=== PATIENT | male | born 1930 | race Caucasian/White ===

== ENCOUNTER → 2016-09-02 | Outpatient (CLI) | payer OTHER | LOC: CIMAGING 09:03 | PROVIDERS: ATTEND Internal Medicine Pulmonary Disease | DX: R91.8 Other nonspecific abnormal finding of lung field (principal); I70.0 Atherosclerosis of aorta; I25.83 Coronary atherosclerosis due to lipid rich plaque; K44.9 Diaphragmatic hernia without obstruction or gangrene; M43.24 Fusion of spine, thoracic region | CPT/HCPCS: 71250-PO ==

== ENCOUNTER 2018-10-27 19:12 | Inpatient (IN) | payer OTHER ==
--- NOTE | 2018-10-27 19:38 | EDPHY ---
H & P Stated Complaint: SOB and weakness X many days Time Seen by Provider: 10/27/18 19:30 HPI/ROS: CHIEF COMPLAINT: Generalized weakness, shortness of breath HISTORY OF PRESENT ILLNESS: Patient is an 88-year-old man who states that he feels generally weak and that he feels so weak he has trouble getting out of bed. He reports that he feels this way intermittently but that it was worse today. He also reports a nonproductive cough and slight shortness of breath. He wears 3 L of oxygen at baseline for history of COPD. His son also reports that the patient is constipated and often seems constipated but then when he takes MiraLax and has bowel movements he develops this extreme fatigue. Patient has been afebrile. No vomiting. No abdominal pain. No chest pain. No headache or lightheadedness. No focal weakness. Severity: Moderate Modifying factors: None REVIEW OF SYSTEMS: Constitutional: denies: chills, fever, recent illness, recent injury EENTM: denies: blurred vision, double vision, nose congestion Respiratory: See HPI Cardiac: See HPI denies: chest pain, irregular heart rate, lightheadedness, palpitations Gastrointestinal/Abdominal: denies: abdominal pain, diarrhea, nausea, vomiting, blood streaked stools Genitourinary: denies: dysuria, frequency, hematuria, pain Musculoskeletal: denies: joint pain, muscle pain Skin: denies: lesions, rash, jaundice, bruising Neurological: denies: headache, numbness, paresthesia, tingling, dizziness, weakness Hematologic/Lymphatic: denies: blood clots, easy bleeding, easy bruising Immunologic/allergic: denies: HIV/AIDS, transplant 10 systems reviewed and negative except as noted EXAM: GENERAL: No significant distress HEAD: Atraumatic, normocephalic. EYES: Pupils equal round and reactive to light, extraocular movements intact, sclera anicteric, conjunctiva are normal. ENT: TMs normal, nares patent, oropharynx clear without exudates. Moist mucous membranes. NECK: Normal range of motion, supple without lymphadenopathy or JVD. LUNGS: Left lower lobe rhonchi HEART: Regular rate and rhythm without murmurs, rubs or gallops. ABDOMEN: Distended but Soft, nontender, normoactive bowel sounds. No guarding , no rebound. No masses appreciated. BACK: No CVA tenderness, no spinal tenderness, step-offs or deformities EXTREMITIES: Normal range of motion, no pitting or edema. No clubbing or cyanosis. NEUROLOGICAL: Cranial nerves II through XII grossly intact. Normal speech, normal gait. 5/5 strength, normal movement in all extremities, normal sensation , normal reflexes PSYCH: Normal mood, normal affect. SKIN: Warm, dry, normal turgor, no visible rashes or lesions. Source: Patient Exam Limitations: No limitations - Personal History Current Tetanus/Diphtheria Vaccine: Yes Current Tetanus Diphtheria and Acellular Pertussis (TDAP): Yes Tetanus Vaccine Date: within 10 years - Medical/Surgical History Hx Asthma: Yes Hx Chronic Respiratory Disease: No Hx Diabetes: No Hx Cardiac Disease: No Hx Renal Disease: No Hx Cirrhosis: No Hx Alcoholism: No Hx HIV/AIDS: No Hx Splenectomy or Spleen Trauma: No Other PMH: home O2 at night, high cholesterol, HTN, B TKAs, kidney stones - Family History Significant Family History: No pertinent family hx - Social History Smoking Status: Never smoked Alcohol Use: Sober Drug Use: None Constitutional: Initial Vital Signs Temperature (C) 36.7 C 10/27/18 19:15 Heart Rate 94 10/27/18 19:15 Respiratory Rate 18 10/27/18 19:15 Blood Pressure 150/86 H 10/27/18 19:15 O2 Sat (%) 95 10/27/18 19:15 O2 Delivery Mode Nasal Cannula O2 (L/minute) 4 Allergies/Adverse Reactions: sulfur dioxide Allergy (Verified 10/27/18 19:15) Home Medications: Medication Instructions Recorded Acetamn/Diphenhydramine 500/25 1 each PO HS 10/27/18 [Tylenol PM (*)] Albuterol Sulfate [Proair Hfa] 1 - 2 puffs IH Q4-6PRN PRN 10/27/18 Ascorbic Acid [Vitamin C 500 mg 500 mg PO DAILY 10/27/18 (*)] Atorvastatin Calcium [Lipitor 20 20 mg PO DAILY 10/27/18 mg (*)] Benzonatate 200 mg PO BID 10/27/18 Cholecalciferol Vit D3 [Vitamin D3 2,000 units PO HS 10/27/18 (*)] Diltiazem HCl [Diltiazem ER] 360 mg PO DAILY 10/27/18 Docusate Sodium [Colace 100 MG (*)] 200 mg PO BID 10/27/18 Doxazosin Mesylate [Cardura 1 MG 2 mg PO DAILY 10/27/18 (*)] Fluticasone Hfa 220 Mcg [Flovent 1 puffs IH BID 10/27/18 220 MCG Hfa MDI (*)] Herbals/Supplements -Info Only 1 ea PO DAILY 10/27/18 Ibuprofen [Motrin (*)] 200 mg PO DAILY 10/27/18 Ipratropium/Albuterol [Duoneb (*)] 3 ml IH Q4H PRN 10/27/18 Lansoprazole 30 mg PO DAILY 10/27/18 Losartan Potassium [Cozaar 25 mg 25 mg PO DAILY 10/27/18 (*)] Magnesium Citrate [Magnesium 300 ml PO ONCE PRN 10/27/18 Citrate 300 ml (*)] Mometasone Furoate Nasal [Nasonex] 1 sprays NASAL DAILY 10/27/18 Multivitamins [Multivitamin (*)] 1 each PO DAILY 10/27/18 Psyllium Husk/Aspartame [Metamucil 3.4 gm PO HS 10/27/18 Fiber Singles Packet] Sennosides [Senna Lax] 8.6 mg PO EVERY OTHER DAY 10/27/18 predniSONE 5 mg PO DAILY 10/27/18 traMADol [Ultram 50 mg (*)] 50 mg PO BID 10/27/18 Medical Decision Making - Diagnostics EKG Interpretation: An EKG obtained and was read and documented in trace view. Please see trace view for full reading and report. Sinus rhythm, right bundle branch block unchanged from previous, no acute ischemic changes Imaging: Discussed imaging studies w/ call center rn Radiologist ED Course/Re-evaluation: Patient's D-dimer is elevated as is white count. Will order CT angio. Will give IV fluids because slightly elevated creatinine. Abdominal exam remains nontender. 9:40 p.m. the patient has bibasilar pneumonia on CT. Will start on Rocephin and azithromycin. I have paged the hospitalist service. Negative for PE. Patient and son agree to admission. Discussed the case with Dr. Trejo who will admit. Differential Diagnosis: Partial list of the Differential diagnosis considered include but were not limited to; pneumonia, sepsis, constipation and although unlikely based on the history and physical exam, I also considered PE, acute coronary disease, pancreatitis, biliary disease. - Data Points Laboratory Results: Laboratory Results 10/27/18 19:30 10/27/18 19:30 Medications Given: Albuterol/Ipratropium (Duoneb) 3 ml IH Q6HRS STEVE Stop: 04/26/19 05:59 Last Admin: 10/28/18 12:19 Dose: 3 ml Atorvastatin Calcium (Lipitor) 20 mg PO DAILY STEVE Stop: 04/26/19 08:59 Last Admin: 10/28/18 09:25 Dose: 20 mg Azithromycin (Zithromax) 250 mg PO DAILY [facility] PRN Reason: Protocol Stop: 11/27/18 08:59 Last Admin: 10/28/18 09:25 Dose: 250 mg Benzonatate (Tessalon Pearles) 200 mg PO BID STEVE Stop: 04/26/19 08:59 Last Admin: 10/28/18 09:25 Dose: 200 mg Diltiazem HCl (Dilacor Xr) 240 mg PO DAILY STEVE Stop: 04/26/19 08:59 Last Admin: 10/28/18 09:25 Dose: 240 mg Diltiazem HCl (Cardizem Er Q24hr) 120 mg PO DAILY STEVE Stop: 04/26/19 08:59 Last Admin: 10/28/18 09:25 Dose: 120 mg Doxazosin Mesylate (Cardura) 2 mg PO DAILY STEVE Stop: 04/26/19 08:59 Last Admin: 10/28/18 09:24 Dose: 2 mg Fluticasone Propionate (Flovent Hfa) 1 puffs IH BID STEVE Stop: 04/26/19 08:59 Last Admin: 10/28/18 12:19 Dose: 1 puffs Heparin Sodium (Porcine) (Heparin Sc Injection) 5,000 unit SC Q8 STEVE Stop: 04/26/19 05:59 Last Admin: 10/28/18 14:23 Dose: 5,000 unit Ceftriaxone Sodium/Dextrose (Rocephin 1 Gm (Premix)) 50 mls @ 100 mls/hr IV DAILY STEVE PRN Reason: Protocol Stop: 11/27/18 08:59 Last Admin: 10/28/18 09:28 Dose: 50 mls Mometasone Furoate (Asmanex) 1 puffs IH DAILY STEVE Stop: 04/26/19 08:59 Last Admin: 10/28/18 14:40 Dose: 1 inh Pantoprazole Sodium (Protonix) 40 mg PO DAILY STEVE Stop: 04/26/19 08:59 Last Admin: 10/28/18 09:25 Dose: 40 mg Prednisone (Prednisone) 40 mg PO DAILY STEVE Stop: 04/26/19 08:59 Last Admin: 10/28/18 09:25 Dose: 40 mg Discontinued Medications Sodium Chloride (Ns) 1,000 mls @ 0 mls/hr IV EDNOW ONE; Wide Open PRN Reason: Protocol Stop: 10/27/18 20:41 Last Admin: 10/27/18 22:00 Dose: 1,000 mls Azithromycin 500 mg/ Sodium (Chloride) 255 mls @ 255 mls/hr IV EDNOW ONE PRN Reason: Protocol Stop: 10/27/18 22:34 Last Admin: 10/28/18 00:03 Dose: 255 mls Ceftriaxone Sodium/Dextrose (Rocephin 1 Gm (Premix)) 50 mls @ 100 mls/hr IV EDNOW ONE PRN Reason: Protocol Stop: 10/27/18 22:02 Last Admin: 10/27/18 22:00 Dose: 50 mls Point of Care Test Results: Chemistry 10/27/18 19:40 POC Troponin I 0.00 ng/mL ng/mL (0.00-0.08) Departure - Departure Disposition: [facility] Acute Clinical Impression: Generalized weakness Pneumonia of both lower lobes Qualifiers: Pneumonia type: due to unspecified organism Qualified Code(s): J18.1 - Lobar pneumonia, unspecified organism Condition: Fair
--- NOTE | 2018-10-27 19:43 | CPEKG ---
Test Reason : OPEN Blood Pressure : / mmHG Vent. Rate : 091 BPM Atrial Rate : 091 BPM P-R Int : 181 ms QRS Dur : 144 ms QT Int : 367 ms P-R-T Axes : 020 -16 -16 degrees QTc Int : 452 ms Sinus rhythm Right bundle branch block Confirmed by Kwame Palm ([id number]) on 10/27/2018 7:42:22 PM Referred By: Igor Reed Confirmed By:Kwame Palm
[2018-10-27 19:44] LABS: PLATELET COUNT 211 10^3/uL (150-400)
[2018-10-27 19:53] LABS: INR 1.22 (0.83-1.16); PROTIME(PATIENT) 14.9 SEC (12.0-15.0)
[2018-10-27] MEDS ORDERED: IOPAMIDOL (ISOVUE 370) 100 ML BTL IV ONE (20:32)
[2018-10-27] MEDS ORDERED: NS 1,000 ML IV ONE (20:40)
[2018-10-27] MEDS ORDERED: ONDANSETRON DISINTEGRATING 4 MG TAB PO PRN (22:43)
[2018-10-27] MEDS ORDERED: ALBUTEROL 3 ML DEYVIAL IH PRN (22:43)
[2018-10-27] MEDS ORDERED: ACETAMINOPHEN 325 MG TAB PO PRN (22:43)
[2018-10-27] MEDS ORDERED: ONDANSETRON 4 MG/2 ML VIAL IVP PRN (22:43)
[2018-10-27] MEDS: AZITHROMYCIN IV 500 MG in NS 250 ML IV ONE (23:41)
[2018-10-28] MEDS: AZITHROMYCIN IV 500 MG in NS 250 ML IV ONE (00:03)
--- NOTE | 2018-10-28 03:48 | PDGENHP ---
History and Physical - Chief Complaint Shortness of breath - History of Present Illness 88 yo M w/ hx of asthma, CHRF, and HTN presents with shortness of breath. The patient tells me that today he developed fatigue and found it difficult to get out of bed. Over the course of the day he developed shortness of breath and worsening cough productive of yellow sputum. Of note, he also tells me he has been experiencing night sweats, but that this has been going on for months. Evaluation in the ED notable for marked leukocytosis and CT evidence of RLL pneumonia. He is not displaying sepsis physiology at this time. He is stable on his baseline 3 L/min O2. He is being admitted for treatment of presumed community acquired pneumonia. Case discussed with Dr. Elder; records reviewed and summarized above. History Information - Allergies/Home Medication List Allergies/Adverse Reactions: sulfur dioxide Allergy (Verified 10/27/18 19:15) Home Medications: Acetamn/Diphenhydramine 500/25 [Tylenol PM (*)] 1 each PO HS 10/27/18 [Last Taken 10/26/18] Albuterol Sulfate [Proair Hfa] 1 - 2 puffs IH Q4-6PRN PRN 10/27/18 [Last Taken Unknown] Ascorbic Acid [Vitamin C 500 mg (*)] 500 mg PO DAILY 10/27/18 [Last Taken ] Atorvastatin Calcium [Lipitor 20 mg (*)] 20 mg PO DAILY 10/27/18 [Last Taken 02/07] Benzonatate 200 mg PO BID 10/27/18 [Last Taken 10/27/18] Cholecalciferol Vit D3 [Vitamin D3 (*)] 2,000 units PO HS 10/27/18 [Last Taken 10/26/18] Diltiazem HCl [Diltiazem ER] 360 mg PO DAILY 10/27/18 [Last Taken 10/26/18] Docusate Sodium [Colace 100 MG (*)] 200 mg PO BID 10/27/18 [Last Taken 10/27/18] Doxazosin Mesylate [Cardura 1 MG (*)] 2 mg PO DAILY 10/27/18 [Last Taken ] Fluticasone Hfa 220 Mcg [Flovent 220 MCG Hfa MDI (*)] 1 puffs IH BID 10/27/18 [ Last Taken 10/27/18] Herbals/Supplements -Info Only 1 ea PO DAILY 10/27/18 [Last Taken 10/25/18] Ibuprofen [Motrin (*)] 200 mg PO DAILY 10/27/18 [Last Taken Unknown] Ipratropium/Albuterol [Duoneb (*)] 3 ml IH Q4H PRN 10/27/18 [Last Taken Unknown] Lansoprazole 30 mg PO DAILY 10/27/18 [Last Taken 10/26/18] Losartan Potassium [Cozaar 25 mg (*)] 25 mg PO DAILY 10/27/18 [Last Taken ] Magnesium Citrate [Magnesium Citrate 300 ml (*)] 300 ml PO ONCE PRN 10/27/18 [ Last Taken Unknown] Mometasone Furoate Nasal [Nasonex] 1 sprays NASAL DAILY 10/27/18 [Last Taken 12/08] Multivitamins [Multivitamin (*)] 1 each PO DAILY 10/27/18 [Last Taken 10/26/18] Psyllium Husk/Aspartame [Metamucil Fiber Singles Packet] 3.4 gm PO HS 10/27/18 [ Last Taken 10/26/18] Sennosides [Senna Lax] 8.6 mg PO EVERY OTHER DAY 10/27/18 [Last Taken Unknown] predniSONE 5 mg PO DAILY 10/27/18 [Last Taken 10/26/18] traMADol [Ultram 50 mg (*)] 50 mg PO BID 10/27/18 [Last Taken 10/26/18] I have personally reviewed and updated: family history, medical history - Past Medical History asthma, hypertension Additional medical history: CHRF - 3 L/min O2 continuously - Surgical History Additional surgical history: Tonsillectomy - Family History Positive for: cancer (Colon CA in father) - Social History Smoking Status: Never smoked Alcohol Use: Sober Drug Use: None Review of Systems Review of Systems: ROS: 10pt was reviewed & negative except for what was stated in HPI & below Physical Exam Physical Exam: Temp Pulse Resp BP Pulse Ox 36.6 C 73 18 153/69 H 95 10/27/18 23:32 10/27/18 23:32 10/27/18 23:32 10/27/18 23:32 10/27/18 23:32 O2 (L/minute) 3 Constitutional: appears nourished, uncomfortable Eyes: PERRL, EOMI Ears, Nose, Mouth, Throat: moist mucous membranes, no oral mucosal ulcers Cardiovascular: regular rate and rhythym, systolic murmur, edema (1+ b/l ADILIA) Respiratory: no respiratory distress, expiratory wheeze, inspiratory crackles Gastrointestinal: normoactive bowel sounds, soft, non-tender abdomen Skin: warm, normal color Musculoskeletal: full muscle strength, no muscle tenderness Neurologic: AAOx3, CN II-XII Intact Psychiatric: interacting appropriately, not anxious Lab Data & Imaging Review 10/27/18 19:30 10/27/18 19:30 WBC 28.89 10^3/uL (3.80-9.50) H 10/27/18 19: RBC 4.22 10^6/uL (4.40-6.38) L 10/27/18 19:30 Hgb 12.0 g/dL (13.7-17.5) L 10/27/18 19: Hct 36.8 % (40.0-51.0) L 10/27/18 19:30 MCV 87.2 fL (81.5-99.8) 10/27/18 19: MCH 28.4 pg (27.9-34.1) 10/27/18 19: MCHC 32.6 g/dL (32.4-36.7) 10/27/18 19: RDW 15.3 % (11.5-15.2) H 10/27/18 19: Plt Count 211 10^3/uL (150-400) 10/27/18 19: MPV 9.9 fL (8.7-11.7) 10/27/18 19:30 Neut % (Auto) 78.1 % (39.3-74.2) H 10/27/18 19:30 Lymph % (Auto) 15.0 % (15.0-45.0) 10/27/18 19:30 [place] % (Auto) 5.5 % (4.5-13.0) 10/27/18 19:30 Eos % (Auto) 0.4 % (0.6-7.6) L 10/27/18 19: Baso % (Auto) 0.2 % (0.3-1.7) L 10/27/18 19:30 Nucleat RBC Rel Count 0.0 % (0.0-0.2) 10/27/18 19:30 Absolute Neuts (auto) 22.56 10^3/uL (1.70-6.50) H 10/27/18 19:30 Absolute Lymphs (auto) 4.33 10^3/uL (1.00-3.00) H 10/27/18 19:30 Absolute Monos (auto) 1.59 10^3/uL (0.30-0.80) H 10/27/18 19:30 Absolute Eos (auto) 0.12 10^3/uL (0.03-0.40) 10/27/18: Absolute Basos (auto) 0.06 10^3/uL (0.02-0.10) 10/27/18 19:30 Absolute Nucleated RBC 0.00 10^3/uL (0-0.01) 10/27/18 19: Immature Gran % 0.8 % (0.0-1.1) 10/27/18 19: Immature Gran # 0.23 10^3/uL (0.00-0.10) H 10/27/18 19:30 RBC/WBC/PLT Morphology TNP 10/27/18: Platelet Estimate TNP 10/27/18: PT 14.9 SEC (12.0-15.0) 10/27/18 19:30 INR 1.22 (0.83-1.16) H 10/27/18: APTT 31.7 SEC (23.0-38.0) 10/27/18 19: D-Dimer 1.94 ug/mLFEU (0.00-0.50) H 10/27/18 19:30 VBG Lactic Acid 0.8 mmol/L (0.7-2.1) 10/27/18 20:08 Sodium 140 mEq/L (135-145) 10/27/18 19:30 Potassium 4.7 mEq/L (3.5-5.2) 10/27/18 19: Chloride 106 mEq/L (97-110) 10/27/18 19: Carbon Dioxide 22 mEq/l (22-31) 10/27/18 19:30 Anion Gap 12 mEq/L (6-14) 10/27/18 19:30 BUN 34 mg/dL (7-23) H 10/27/18 19:30 Creatinine 1.5 mg/dL (0.7-1.3) H 10/27/18 19:30 Estimated GFR 44 10/27/18 19:30 Glucose 119 mg/dL (70-100) H 10/27/18 19:30 Calcium 9.3 mg/dL (8.5-10.4) 10/27/18 19:30 POC Troponin I 0.00 ng/mL (0.00-0.08) 10/27/18 19:40 NT-Pro-B Natriuret Pep 849 pg/mL (0-450) H 10/27/18 19:30 Procalcitonin 0.34 ng/mL (0.02-0.10) H 10/27/18 19:30 Imaging Review: Imaging Impressions Chest X-Ray 10/27/18 19:31 Impression: Bibasilar atelectasis and airways disease/bronchitis. Chest/Thorax CTA 10/27/18 20:29 Impression: 1. No evidence of pulmonary thromboembolic disease. 2. Bronchial pneumonia preferentially involving the right lower lobe. 3. No pleural effusion. 4. Extensive three-vessel calcified coronary plaque. 5. Left nephrolithiasis. Findings discussed with Emergency Department physician, Kwame Palm M.D., on October 27, 2018 at 2132. E:amm Visualized and Interpreted EKG results: Yes EKG Interpretation: Positive for: normal sinsus rhythm, right bundle branch block Assessment & Plan Assessment: 88 yo M w/ hx of asthma, HTN, and CHRF presents with pneumonia. Plan: 1. Community acquired pneumonia - He presents with one day of SOB and increased cough productive of yellow sputum. WBC 28k w/ CT evidence of RLL pneumonia, no sepsis physiology at this time. Procalcitonin mildly elevated at 0.34. - Admit for observation - CTX/Azithromycin for CAP coverage - Blood cultures, sputum culture, respiratory PCR ordered - Will also send Strep, Legionella urine antigens 2. Asthma with acute exacerbation - Exacerbation due to pneumonia; he follows with Dr. Tran as an outpatient. - Antibiotics as above - Prednisone 40 mg qD - Duonebs QID + albuterol PRN (He is on duonebs as outpatient per Dr. Tran despite hx of asthma) 3. CHRF - On 3 L/min O2 as an outpatient, currently stable on the same. - Continue O2 PRN - Incentive spirometry ordered 4. ESE - Serum creatinine 1.5 on admission, possibly due to dehydration and infection. - S/p 1 L IVF - Monitor BMP 5. HTN - Continue home medications pending reconciliation Diet - Regular Code - Full Ppx - SQH Dispo - Admit under observation status
[2018-10-28 05:12] LABS: PLATELET COUNT 193 10^3/uL (150-400)
[2018-10-28] MEDS: IPRATROPIUM/ALBUTEROL 3 ML DEYVIAL IH SCH ×4 (05:12→21:56)
[2018-10-28] MEDS: HEPARIN 5,000 UNIT/0.5 ML INJ SC SCH ×3 (05:50→21:10)
[2018-10-28] MEDS: DOXAZOSIN MESYLATE 1 MG TAB PO SCH (09:24)
[2018-10-28] MEDS: DILTIAZEM XR 240 MG CAP PO SCH (09:25)
[2018-10-28] MEDS: PANTOPRAZOLE SODIUM 40 MG TAB PO SCH (09:25)
[2018-10-28] MEDS: DILTIAZEM CD 120 MG CAP PO SCH (09:25)
[2018-10-28] MEDS: ATORVASTATIN CALCIUM 20 MG TAB PO SCH (09:25)
[2018-10-28] MEDS: BENZONATATE 100 MG CAP PO SCH ×2 (09:25→20:30)
[2018-10-28] MEDS: predniSONE 20 MG TAB PO SCH (09:25)
[2018-10-28] MEDS: AZITHROMYCIN 250 MG TAB PO SCH (09:25)
--- NOTE | 2018-10-28 11:29 | ASMTCMCOM ---
CM Note CM Note Notes: Pts case discussed w/ Dr. Ramon. Pt is a 88 y/o man admitted for pneumonia, generalized weakness and SOB. CM met w/ pt and introduced self. Pt and his son Tony was present. Pt lives w/ Tony. Pt reports that Tony brings pt to all his appointments, and does the cooking/cleaning around the house. Pt reports that he uses a walker and 3L of o2 at baseline. PT/OT have been ordered and awaiting recommendations. Needs are TBD at this time. CM to follow. Plan: TBD Date Signed: 10/28/2018 11:27 AM Electronically Signed By:CORRY Ibarra
[2018-10-28] MEDS: FLUTICASONE HFA 220 MCG MDI IH SCH ×2 (12:19→21:56)
--- NOTE | 2018-10-28 13:42 | HOSPPROG ---
Hospitalist Progress Note Assessment/Plan: 88 yo M w/ hx of asthma, HTN, and CHRF presents with pneumonia. Plan: 1. Community acquired pneumonia - He presents with one day of SOB and increased cough productive of yellow sputum. WBC 28k w/ CT evidence of RLL pneumonia, no sepsis physiology at this time. Procalcitonin mildly elevated at 0.34. - CTX/Azithromycin for CAP coverage (Day 1/ likely 7 day course) - Blood cultures, sputum culture, respiratory PCR negative - Strep, Legionella urine antigens pending 2. Asthma with acute exacerbation - Exacerbation due to pneumonia; he follows with Dr. Tran as an outpatient. - Antibiotics as above - Prednisone 40 mg qD (Day 15) - Duonebs QID + albuterol PRN (He is on duonebs as outpatient per Dr. Tran despite hx of asthma) 3. CHRF - On 3 L/min O2 as an outpatient, currently stable on the same. - Continue O2 PRN - Incentive spirometry ordered 4. ESE - Serum creatinine 1.5 on admission, possibly due to dehydration and infection. - S/p 1 L IVF - Monitor BMP 5. HTN - Continue home medications pending reconciliation Diet - Regular Code - Full Ppx - SQH Dispo - Pending clinical course Subjective: Pt reports feeling very weak this afternoon Objective: Vital Signs Temp Pulse Resp BP Pulse Ox 36.7 C 76 18 143/73 H 92 10/28/18 11:36 10/28/18 11:36 10/28/18 11:36 10/28/18 11:36 10/28/18 11:36 Microbiology 10/28/18 08:30 - Final Sputum, Expectorated 10/27/18 23:40 Respiratory Panel (PCR) - Final Nasal, Sinus - Swab No Organism Detected By Pcr Laboratory Results 10/28/18 04:30 10/28/18 04:30 10/27/18 10/28/18 10/29/18 05:59 05:59 05:59 Intake Total 1050 Output Total 525 Balance 525 PT 14.9 SEC (12.0-15.0) 10/27/18 19:30 INR 1.22 (0.83-1.16) H 10/27/18 19:30 - Physical Exam Constitutional: chronically ill appearing Eyes: PERRL Ears, Nose, Mouth, Throat: moist mucous membranes Cardiovascular: regular rate and rhythym Respiratory: reduced air movement, rhonchi Gastrointestinal: soft, non-tender abdomen, distension Skin: warm Musculoskeletal: generalized weakness Neurologic: AAOx3 Psychiatric: interacting appropriately ICD10 Worksheet Patient Problems: Problems Problem Status Onset Generalized weakness Acute Pneumonia of both lower lobes Acute
[2018-10-28] MEDS: MOMETASONE 220MCG INHALER IH SCH (14:40)
[2018-10-28] MEDS: traMADol 50 MG TAB PO PRN (21:15)
[2018-10-28] MEDS ORDERED: GUAIFENESIN/DM 10 ML UDCUP PO PRN (22:12)
[2018-10-29] MEDS: HEPARIN 5,000 UNIT/0.5 ML INJ SC SCH ×3 (05:26→21:38)
[2018-10-29] MEDS: IPRATROPIUM/ALBUTEROL 3 ML DEYVIAL IH SCH ×4 (05:52→22:16)
[2018-10-29] MEDS: DILTIAZEM XR 240 MG CAP PO SCH (08:44)
[2018-10-29] MEDS: ATORVASTATIN CALCIUM 20 MG TAB PO SCH (08:44)
[2018-10-29] MEDS: AZITHROMYCIN 250 MG TAB PO SCH (08:44)
[2018-10-29] MEDS: predniSONE 20 MG TAB PO SCH (08:44)
[2018-10-29] MEDS: BENZONATATE 100 MG CAP PO SCH ×2 (08:45→21:38)
[2018-10-29] MEDS: PANTOPRAZOLE SODIUM 40 MG TAB PO SCH (08:45)
[2018-10-29] MEDS: DILTIAZEM CD 120 MG CAP PO SCH (08:45)
[2018-10-29] MEDS: DOXAZOSIN MESYLATE 1 MG TAB PO SCH (08:45)
--- NOTE | 2018-10-29 09:00 | PDMN ---
Medical Necessity Medical necessity: Change to inpt as of 10/28/18, meets inpt criteria per MD order and MCG M-282, Pneumonia, A-2 days, 88 y/o admitted w/bibasilar PNA w/ asthma exacerbation and ESE, warrants inpt admission due to pt's comorbid adv age, and hx of CHRF (uses 3L O2 at home), asthma (w/current exacerbation), ongoing weakness due to PNA, cont IV ABX's, est LOS>2MN for onging med nec tx of above.
[2018-10-29] MEDS: MOMETASONE 220MCG INHALER IH SCH (09:56)
[2018-10-29] MEDS: FLUTICASONE HFA 220 MCG MDI IH SCH ×2 (09:56→22:17)
--- NOTE | 2018-10-29 10:39 | ASMTCMCOM ---
CM Note CM Note Notes: Pts case discussed w/ Dr. Ramon. Therapies are recommending SNF at this time. CM met w/ pt for dispo planning. Pt is agreeable to going to SNF. Pt reports that he is pretty sure that he went to [facility] after he had knee surgery. Pt would like a referral made there. Pt wanted CM to call son and update him of this. CM left a msg for pts son Tony (P#: [phone]). CM to follow. Plan: [facility] pending on acceptance Date Signed: 10/29/2018 10:38 AM Electronically Signed By:CORRY Ibarra
--- NOTE | 2018-10-29 14:51 | HOSPPROG ---
Hospitalist Progress Note Assessment/Plan: 88 yo M w/ hx of asthma, HTN, and CHRF presents with pneumonia. Plan: 1. Community acquired pneumonia - He presents with one day of SOB and increased cough productive of yellow sputum. WBC 28k w/ CT evidence of RLL pneumonia, no sepsis physiology at this time. Procalcitonin mildly elevated at 0.34. - CTX/Azithromycin for CAP coverage (Day 2/ likely 7 day course) - Blood cultures, sputum culture pending - Respiratory PCR negative - Strep, Legionella urine antigens pending 2. Asthma with acute exacerbation - Exacerbation due to pneumonia; he follows with Dr. Tran as an outpatient. - Antibiotics as above - Prednisone 40 mg qD (Day 2/5) - Duonebs QID + albuterol PRN (He is on duonebs as outpatient per Dr. Tran despite hx of asthma) 3. CHRF - On 3 L/min O2 as an outpatient, currently stable on the same. - Continue O2 PRN - Incentive spirometry ordered 4. ESE - Serum creatinine 1.5 on admission, possibly due to dehydration and infection. - S/p 1 L IVF - Monitor BMP, Cr 1.3 this AM 5. HTN - Continue home medications Diet - Regular Code - Full Ppx - SQH Dispo - Pending clinical course, OT recommending SNF Subjective: Pt reports improving SOB, but has fatigue still Objective: Vital Signs Temp Pulse Resp BP Pulse Ox 36.7 C 73 14 117/47 L 94 10/29/18 11:13 10/29/18 11:13 10/29/18 11:13 10/29/18 11:13 10/29/18 11:13 Laboratory Results 10/29/18 04:46 10/29/18 04:46 10/28/18 10/29/18 10/30/18 05:59 05:59 05:59 Intake Total 500 Balance 500 PT 14.9 SEC (12.0-15.0) 10/27/18 19:30 INR 1.22 (0.83-1.16) H 10/27/18 19:30 - Physical Exam Constitutional: chronically ill appearing Eyes: PERRL Ears, Nose, Mouth, Throat: moist mucous membranes Cardiovascular: regular rate and rhythym Respiratory: reduced air movement, rhonchi Gastrointestinal: soft, non-tender abdomen Skin: warm Musculoskeletal: generalized weakness Neurologic: AAOx3 Psychiatric: interacting appropriately ICD10 Worksheet Patient Problems: Problems Problem Status Onset Generalized weakness Acute Pneumonia of both lower lobes Acute
[2018-10-29] MEDS: LIDOCAINE 4%/MENTHOL 1% PATCH TD SCH (15:22)
[2018-10-29] MEDS: PATCH REMOVAL 1 EA PATCH TD SCH (21:39)
[2018-10-30] MEDS: IPRATROPIUM/ALBUTEROL 3 ML DEYVIAL IH SCH ×4 (05:08→21:46)
[2018-10-30] MEDS: HEPARIN 5,000 UNIT/0.5 ML INJ SC SCH ×3 (05:21→21:24)
[2018-10-30] MEDS: LIDOCAINE 4%/MENTHOL 1% PATCH TD SCH (08:17)
[2018-10-30] MEDS: DILTIAZEM XR 240 MG CAP PO SCH (08:17)
[2018-10-30] MEDS: predniSONE 20 MG TAB PO SCH (08:18)
[2018-10-30] MEDS: AZITHROMYCIN 250 MG TAB PO SCH (08:18)
[2018-10-30] MEDS: DOXAZOSIN MESYLATE 1 MG TAB PO SCH (08:18)
[2018-10-30] MEDS: DILTIAZEM CD 120 MG CAP PO SCH (08:18)
[2018-10-30] MEDS: ATORVASTATIN CALCIUM 20 MG TAB PO SCH (08:18)
[2018-10-30] MEDS: PANTOPRAZOLE SODIUM 40 MG TAB PO SCH (08:18)
[2018-10-30] MEDS: BENZONATATE 100 MG CAP PO SCH ×2 (08:18→21:21)
[2018-10-30] MEDS: FLUTICASONE HFA 220 MCG MDI IH SCH ×2 (09:45→21:47)
[2018-10-30] MEDS: MOMETASONE 220MCG INHALER IH SCH (09:48)
--- NOTE | 2018-10-30 13:28 | HOSPPROG ---
Hospitalist Progress Note Assessment/Plan: 88 yo M w/ hx of asthma, HTN, and CHRF presents with pneumonia. Plan: 1. Community acquired pneumonia - He presents with one day of SOB and increased cough productive of yellow sputum. WBC 28k w/ CT evidence of RLL pneumonia, no sepsis physiology at this time. Procalcitonin mildly elevated at 0.34. - Will transition CTX/Azithromycin to Levaquin to complete total 7 day course ( day 3) - Blood cultures NGTD, sputum culture growing Pseudomonas susceptible to Levaquin - Respiratory PCR negative - Strep, Legionella urine antigens pending 2. Asthma with acute exacerbation - Exacerbation due to pneumonia; he follows with Dr. Tran as an outpatient. - Antibiotics as above - Prednisone 40 mg qD (Day 3) - Duonebs QID + albuterol PRN (He is on duonebs as outpatient per Dr. Tran despite hx of asthma) 3. CHRF - On 3 L/min O2 as an outpatient, currently stable on the same. - Continue O2 PRN - Incentive spirometry ordered 4. ESE - Serum creatinine 1.5 on admission, possibly due to dehydration and infection. - S/p 1 L IVF - Monitor BMP, Cr 1.2 this AM 5. HTN - Continue home medications Diet - Regular Code - Full Ppx - SQH Dispo - Pending clinical course, OT recommending SNF, CM working on placement Subjective: Pt reports continuing to feel improved this AM Objective: Vital Signs Temp Pulse Resp BP Pulse Ox 36.8 C 66 16 136/63 H 95 10/30/18 11:11 10/30/18 11:47 10/30/18 11:47 10/30/18 11:11 10/30/18 11:47 Laboratory Results 10/30/18 04:36 10/30/18 04:36 10/29/18 10/30/18 10/31/18 05:59 05:59 05:59 Intake Total 500 300 Balance 500 300 PT 14.9 SEC (12.0-15.0) 10/27/18 19:30 INR 1.22 (0.83-1.16) H 10/27/18 19:30 - Physical Exam Constitutional: chronically ill appearing Eyes: PERRL Ears, Nose, Mouth, Throat: moist mucous membranes Cardiovascular: regular rate and rhythym Respiratory: no respiratory distress, reduced air movement Gastrointestinal: soft, non-tender abdomen Skin: normal color Musculoskeletal: generalized weakness Neurologic: AAOx3 Psychiatric: interacting appropriately ICD10 Worksheet Patient Problems: Problems Problem Status Onset Generalized weakness Acute Pneumonia of both lower lobes Acute
[2018-10-30] MEDS: CEPACOL LOZENGE PO PRN ×3 (14:21→21:44)
--- NOTE | 2018-10-30 14:26 | ASMTCMCOM ---
CM Note CM Note Notes: [facility] has accepted pt and is awaiting authorization from insurance. CM sent note asking to notify us when authorization received. Dr. Ramon is transitioning pt from IV to oral antibiotics to complete his 7-day course (on day 3 today) in preparation for when he discharges. CM will continue to follow. CM D/C plan: [facility] once authorization received Date Signed: 10/30/2018 02:26 PM Electronically Signed By:Kerline Escobedo
[2018-10-30] MEDS: guaiFENesin/CODEINE PHOS 10 ML UDCUP PO PRN (18:36)
[2018-10-30] MEDS: PATCH REMOVAL 1 EA PATCH TD SCH (21:28)
[2018-10-30] MEDS: traMADol 50 MG TAB PO PRN (21:42)
[2018-10-31] MEDS: HEPARIN 5,000 UNIT/0.5 ML INJ SC SCH ×3 (05:26→21:54)
[2018-10-31] MEDS: IPRATROPIUM/ALBUTEROL 3 ML DEYVIAL IH SCH ×4 (05:44→21:15)
[2018-10-31] MEDS: ATORVASTATIN CALCIUM 20 MG TAB PO SCH (08:55)
[2018-10-31] MEDS: PANTOPRAZOLE SODIUM 40 MG TAB PO SCH (08:56)
[2018-10-31] MEDS: predniSONE 20 MG TAB PO SCH (08:57)
[2018-10-31] MEDS: DOXAZOSIN MESYLATE 1 MG TAB PO SCH (08:57)
[2018-10-31] MEDS: BENZONATATE 100 MG CAP PO SCH ×2 (08:57→20:47)
[2018-10-31] MEDS: DILTIAZEM CD 120 MG CAP PO SCH (08:58)
[2018-10-31] MEDS: DILTIAZEM XR 240 MG CAP PO SCH (08:59)
[2018-10-31] MEDS: FLUTICASONE HFA 220 MCG MDI IH SCH ×2 (09:00→20:47)
[2018-10-31] MEDS: MOMETASONE 220MCG INHALER IH SCH (09:01)
[2018-10-31] MEDS: LIDOCAINE 4%/MENTHOL 1% PATCH TD SCH (09:01)
--- NOTE | 2018-10-31 10:36 | HOSPPROG ---
Hospitalist Progress Note Assessment/Plan: 88 yo M w/ hx of asthma, HTN, and CHRF presents with pneumonia. Plan: 1. Community acquired pneumonia - He presents with one day of SOB and increased cough productive of yellow sputum. WBC 28k w/ CT evidence of RLL pneumonia, no sepsis physiology at this time. Procalcitonin mildly elevated at 0.34. - Will transition CTX/Azithromycin to Levaquin to complete total 7 day course ( day 4) - Blood cultures NGTD, sputum culture growing Pseudomonas susceptible to Levaquin - Respiratory PCR negative - Strep, Legionella urine antigens negative 2. Asthma with acute exacerbation - Exacerbation due to pneumonia; he follows with Dr. Tran as an outpatient. - Antibiotics as above - Prednisone 40 mg qD (Day 4) - Duonebs QID + albuterol PRN (He is on duonebs as outpatient per Dr. Tran despite hx of asthma) 3. CHRF - On 3 L/min O2 as an outpatient, currently stable on the same. - Continue O2 PRN - Incentive spirometry ordered 4. ESE - Serum creatinine 1.5 on admission, possibly due to dehydration and infection. - S/p 1 L IVF - Monitor BMP, Cr 1.2 on 10/30 (baseline 1.3 in 2013) 5. HTN - Continue home medications Diet - Regular Code - Full Ppx - SQH Dispo - Pending clinical course, OT recommending SNF, CM working on placement, d /c likely tomorrow Subjective: Pt reporting continued improvement in SOB and weakness Objective: Vital Signs Temp Pulse Resp BP Pulse Ox 36.7 C 80 16 141/83 H 94 10/31/18 08:00 10/31/18 10:16 10/31/18 10:16 10/31/18 08:59 10/31/18 10:16 Laboratory Results 10/30/18 04:36 10/30/18 04:36 10/30/18 10/31/18 11/01/18 05:59 05:59 05:59 Intake Total 300 Balance 300 PT 14.9 SEC (12.0-15.0) 10/27/18 19:30 INR 1.22 (0.83-1.16) H 10/27/18 19:30 - Physical Exam Constitutional: chronically ill appearing Eyes: PERRL Ears, Nose, Mouth, Throat: moist mucous membranes Cardiovascular: regular rate and rhythym Respiratory: no respiratory distress, reduced air movement Gastrointestinal: soft, non-tender abdomen Skin: warm Musculoskeletal: generalized weakness Neurologic: AAOx3 Psychiatric: interacting appropriately ICD10 Worksheet Patient Problems: Problems Problem Status Onset Generalized weakness Acute Pneumonia of both lower lobes Acute
--- NOTE | 2018-10-31 10:42 | ASMTCMCOM ---
CM Note CM Note Notes: JOLIE spoke with Autumn at [facility]. They are still awaiting insurance authorization and hope to have it tomorrow. CM let son Tony know. JOLIE D/C plan: [facility], hopefully [facility] Date Signed: 10/31/2018 10:41 AM Electronically Signed By:Kerline Escobedo
[2018-10-31] MEDS: CEPACOL LOZENGE PO PRN ×3 (11:28→20:47)
[2018-10-31] MEDS: PATCH REMOVAL 1 EA PATCH TD SCH (21:03)
[2018-10-31] MEDS: guaiFENesin/CODEINE PHOS 10 ML UDCUP PO PRN (21:56)
[2018-11-01] MEDS: IPRATROPIUM/ALBUTEROL 3 ML DEYVIAL IH SCH ×2 (05:38→10:23)
[2018-11-01] MEDS: HEPARIN 5,000 UNIT/0.5 ML INJ SC SCH ×2 (05:54→15:09)
[2018-11-01] MEDS: BENZONATATE 100 MG CAP PO SCH (08:42)
[2018-11-01] MEDS: DILTIAZEM CD 120 MG CAP PO SCH (08:42)
[2018-11-01] MEDS: ATORVASTATIN CALCIUM 20 MG TAB PO SCH (08:42)
[2018-11-01] MEDS: DILTIAZEM XR 240 MG CAP PO SCH (08:43)
[2018-11-01] MEDS: predniSONE 20 MG TAB PO SCH (08:44)
[2018-11-01] MEDS: PANTOPRAZOLE SODIUM 40 MG TAB PO SCH (08:44)
[2018-11-01] MEDS: DOXAZOSIN MESYLATE 1 MG TAB PO SCH (08:44)
[2018-11-01] MEDS ORDERED: BISACODYL 10 MG SUPP PR PRN (09:36)
[2018-11-01] MEDS ORDERED: MAGNESIUM HYDROXIDE 30 ML UDCUP PO PRN (09:36)
[2018-11-01] MEDS ORDERED: POLYETHYLENE GLYCOL 3350 17 GM PKT PO PRN (09:36)
[2018-11-01] MEDS ORDERED: LACTULOSE 20 GM/30 ML UDCUP PO PRN (09:36)
[2018-11-01] MEDS: MOMETASONE 220MCG INHALER IH SCH (10:23)
[2018-11-01] MEDS: FLUTICASONE HFA 220 MCG MDI IH SCH (10:23)
[2018-11-01] MEDS: LIDOCAINE 4%/MENTHOL 1% PATCH TD SCH (11:19)
[2018-11-01] MEDS: CEPACOL LOZENGE PO PRN ×2 (11:54→15:09)
--- NOTE | 2018-11-01 13:28 | PDIAF ---
- Diagnosis Diagnosis: Pnuemonia Code Status: Full Code - Medication Management Intermediate Antibiotics: Levaquin Button Sewer Hand Antibiotic Stop Date: 11/03/18 Discharge Medications: electronically signed and located in the Home Medication List. - Orders Services needed: Home Care, Registered Nurse, Physical Therapy, Occupational Therapy Home Care Face to Face: I certify that this patient was under my care and that I had the required [id number] encounter meeting the encounter requirements on the discharge day. My findings support the fact that the patient is homebound as defined in Home Care Face to Face Continued: CMS Chapter 7 Medicare Benefits Manual 30.1.1 , The condition of the patient is such that there exists a normal inability to leave home and consequently, leaving home would require a considerable and taxing effort. - Follow Up Care Current Providers and Referrals: DEMOND SILVESTRE [Primary Care Provider] - As per Instructions
--- NOTE | 2018-11-01 13:31 | ASMTDCNOTE ---
Case Management Discharge Discharge Order Complete? Answers: Yes Patient to Obtain Answers: Other Notes: [facility] [place] Medications Transportation Arranged Answers: Other Faxed Final Orders Answers: Yes Family Notified Answers: Yes Discharge Comments Notes: Patient discharged to [facility]. Transportation arranged by [place] at facility. D/C orders + med list sent. YULIA Dennis to call report. Date Signed: 11/01/2018 01:29 PM Electronically Signed By:Nicole Toney RN
--- NOTE | 2018-11-01 13:50 | PDDCSUM ---
Discharge Summary Discharge Summary: Date of Admission: 10/28/2018 Date of Discharge: 11/01/2018 Consults: N/A Procedures: CXR Followup: PCP Hospital Course Problem List: 88 yo M w/ hx of asthma, HTN, and CHRF presents with pneumonia. Plan: 1. Community acquired pneumonia - He presents with one day of SOB and increased cough productive of yellow sputum. WBC 28k w/ CT evidence of RLL pneumonia, no sepsis physiology at this time. Procalcitonin mildly elevated at 0.34. - Transitioned CTX/Azithromycin to Levaquin to complete total 7 day course (day 10/26) - Blood cultures NGTD, sputum culture growing Pseudomonas susceptible to Levaquin - Respiratory PCR negative - Strep, Legionella urine antigens negative 2. Asthma with acute exacerbation - Exacerbation due to pneumonia; he follows with Dr. Tran as an outpatient. - Antibiotics as above - Prednisone 40 mg qD (Day 10/24) - Duonebs QID + albuterol PRN 3. CHRF - On 3 L/min O2 as an outpatient, currently stable on the same. - Continue O2 PRN - Incentive spirometry ordered 4. ESE - Serum creatinine 1.5 on admission, possibly due to dehydration and infection. - S/p 1 L IVF - Monitor BMP, Cr 1.2 on 10/30 (baseline 1.3 in 2013) 5. HTN - Continue home medications Time spent on discharge was >35 minutes with >50% of time spent on patient education and counseling.
[2018-11-01 15:22] VITALS: BP 136/75
[2018-11-01] MEDS ORDERED: SENNOSIDES/DOCUSATE SODIUM TAB PO SCH (21:00)
--- NOTE | 2018-11-02 16:14 | ASDISCHSUM ---
Discharge Information Plan Status:SNF Medically Cleared to Leave:11/02/2018 Discharge Date:11/01/2018 03:57 PM CM D/C Disposition: ADT D/C Disposition:[facility] Facility Projected Discharge Date:11/02/2018 11:00 AM Transportation at D/C: Discharge Delay Reason: Follow-Up Date:11/02/2018 11:00 AM Discharge Slot: Final Diagnosis: Placement Information Referral Type:*Usp/SNF Referral ID:[id number] Provider Name:[facility] Address 1:[address] [facility] Address 2: City:[place] Selection Factors: State:[place] Patient Contact Information Contact Name:TONYDEMETRIUSJESSICA Relationship:Son Address: Work Phone: City: [facility] Phone: [facility] Code: Email: Financial Information Financial Class:Medicare Advantage Plans Primary Plan Desc:[employer] MEDICARE ADV Primary Plan Number:[id number] Secondary Plan Desc: Secondary Plan Number: Assessment Information [facility] CM Progress Note CM Note CM Note Notes: Pts case discussed w/ Dr. Ramon. Pt is a 88 y/o man admitted for pneumonia, generalized weakness and SOB. CM met w/ pt and introduced self. Pt and his son Tony was present. Pt lives w/ Tony. Pt reports that Tony brings pt to all his appointments, and does the cooking/cleaning around the house. Pt reports that he uses a walker and 3L of o2 at baseline. PT/OT have been ordered and awaiting recommendations. Needs are TBD at this time. CM to follow. Plan: TBD Date Signed: 10/28/2018 11:27 AM Electronically Signed By:CORRY Ibarra [facility] CM Progress Note CM Note CM Note Notes: Pts case discussed w/ Dr. Ramon. Therapies are recommending SNF at this time. CM met w/ pt for dispo planning. Pt is agreeable to going to SNF. Pt reports that he is pretty sure that he went to [facility] after he had knee surgery. Pt would like a referral made there. Pt wanted CM to call son and update him of this. CM left a msg for pts son Tony (P#: [phone]). CM to follow. Plan: [facility] pending on acceptance Date Signed: 10/29/2018 10:38 AM Electronically Signed By:CORRY Ibarra [facility] JOLIE Progress Note CM Note CM Note Notes: [facility] has accepted pt and is awaiting authorization from insurance. CM sent note asking to notify us when authorization received. Dr. Ramon is transitioning pt from IV to oral antibiotics to complete his 7-day course (on day 3 today) in preparation for when he discharges. CM will continue to follow. CM D/C plan: [facility] once authorization received Date Signed: 10/30/2018 02:26 PM Electronically Signed By:Kerline Escobedo [facility] CM Progress Note CM Note CM Note Notes: CM spoke with Autumn at [facility]. They are still awaiting insurance authorization and hope to have it tomorrow. CM let son Tony know. D/C plan: SNF, hopefully [facility] Date Signed: 10/31/2018 10:41 AM Electronically Signed By:Kerline Escobedo Case Management Discharge Plan Note Case Management Discharge Discharge Order Complete? Answers: Yes Patient to Obtain Answers: Other Notes: [facility] Medications Transportation Arranged Answers: Other Faxed Final Orders Answers: Yes Family Notified Answers: Yes Discharge Comments Notes: Patient discharged to [facility]. Transportation arranged by [place] at [facility]. D/C orders + med list sent. YULIA Dennis to call report. Date Signed: 11/01/2018 01:29 PM Electronically Signed By:Nicole Toney RN Intervention Information Intervention Type:*GODINEZ-Signed Date of Service:10/28/2018 10:16 AM Patient Type:Observation Staff Member:Tila Cannon Hours: Discipline: Severity: Comment: Intervention Type:*IM-Signed Date of Service:11/01/2018 10:58 AM Patient Type:Inpatient Staff Member:Tila Cannon Hours: Discipline: Severity: Comment:
--- NOTE | 2018-11-10 13:38 | PQFORM ---
PHYSICIAN QUERY FORM Needs Your Response This query form is being sent to you to assure this patient record is coded properly. Please respond to the question below: RAT EXTERMINATOR QUESTION: Dear Dr. Ramon, Pseudomonas was noted to be growing on the sputum culture and patient was diagnosed with Community acquired pneumonia. Can you confirm if this organism was the causative organism for the patients Pneumonia? Yes, Pneumonia due to pseudomonas No, Pneumonia NOT due to pseudomonas Other more specified diagnosis (Please specify) Clinically unable to determine Thank you, Rhina Parisi, RAJINDER HIM/Coding Dept. INSTRUCTIONS FOR RESPONSE: Answer question by clicking on the "Edit Document" button. Move cursor to area below the stars. When complete, hit "Save." Click on the "Sign" button, then click "Sign" again. Type in your PIN and hit "Enter." Pneumonia was due to pseudomonas which grew in sputum culture along with klebsiella during patient's admission. MTDD
== END 2018-11-01 15:57 | DRG 178 ==
LOC: F3E 22:58 → OBSVTOIN 10-28 13:43
PROVIDERS: ADMIT Student in an Organized Health Care Education/Training Program; ATTEND Internal Medicine
DX: J15.1 Pneumonia due to Pseudomonas (principal); J45.901 Unspecified asthma with (acute) exacerbation; N17.9 Acute kidney failure, unspecified; J96.11 Chronic respiratory failure with hypoxia; J15.0 Pneumonia due to Klebsiella pneumoniae; E86.9 Volume depletion, unspecified; I10 Essential (primary) hypertension; E78.00 Pure hypercholesterolemia, unspecified; Z96.653 Presence of artificial knee joint, bilateral
CPT/HCPCS: 84484-ER; 87449-90; 97110-GP; 97116-GP; 97161-GP; 97165-GO; 97530-GO; 97535-GO; G0378; J0456; J0696; J1644; J7512; J7613; Q9967